=== PATIENT | male | born 1945 | race Caucasian/White ===

== ENCOUNTER 2016-09-30 10:54 | Emergency (ER) | payer MEDICARE, BC ==
[~2016-09-30] VITALS: Ht 165.1 cm; Wt 81.8 kg
[~2016-09-30 10:54] MED LIST: AMBIEN 5MG TABLE5 MG PO; AMLODIPINE BES2.5 MG PO; AMLODIPINE BESY10 MG PO; ASPIRIN 32325 MG/TAB PO; CIPRO 500MG TA500 MG PO; COLCRYS0.6 MG PO; CRESTOR 10MG10 MG PO; FLAGYL500 MG PO; FORTAMET1000 MG PO; GEMCOR600 MG PO; GLIPIZIDE10 MG PO; GLIPIZIDE5 MG PO; GLUCOPHAGE1000 MG PO; HCTZ 25MG TAB25 MG PO; HCTZ 25MG25 MG PO; INSULIN L (H100 U/ML IJ; KEPPRA 500MG500 MG PO; LISINOPRIL40 MG PO; LOPID 600M600 MG/TAB PO; LOPRESSOR 550 MG/TAB PO; LORTAB 5/500 501 TAB PO; METFORMIN1000 MG PO; METOCLOPRAMIDE10 MG PO; METOPROLOL50 MG PO; MOBIC15 MG PO; MULTI VITAMINS1 TAB PO; NEURONTIN600 MG/TAB PO; NORCO 325 MG-51 TAB PO; NORCO 325 MG-7.1 TAB PO; NOVOLOG MIX 70/33 ML SC; OMEGA-3 FISH1000 MG PO; PEPCID 20M20 MG/2 ML IV; PRAVASTATIN40 MG PO; PRILOSEC 20MG20 MG PO; PROAIR HFA0.09 MG/AC IH; REGLAN 10MG10 MG/TAB PO; THEO-24 30300 MG/CAP PO; THEO-DUR 300MG300 MG PO; THEOPHYLLINE S300 MG PO; TYLENOL 325MG325 MG PO; ULTRAM 50MG TAB50 MG PO; WELCHOL 625MG625 MG PO; ZESTRIL40 MG PO; ZOFRAN 4MG T4 MG/TAB PO
[2016-09-30 10:58] VITALS: TEMP 97.8
[2016-09-30 12:17] LABS: BASO % 0.6 % (0.0-2.0); EOS % 18.8 % (0-4.0); GRAN % 36.5 % (42.2-75.2); HEMATOCRIT 38.3 % (42.0-52.0); HEMOGLOBIN 12.9 g/dl (13.5-18.0); LYMPH # 1.9 (1.2-3.4); LYMPH % 34.5 % (20.0-51.0); MEAN CELL VOLUME 99 fl (80.0-100.0); MEAN CORPUSCULAR HEMOGLOBIN 33 pg (27.0-31.0); MEAN CORPUSCULAR HGB CONC 34 g/dl (33.0-37.0); MEAN PLATELET VOLUME 11.8 fl (7.4-10.4); MONO # 0.5 (0.1-0.6); PLATELET COUNT 197 K/mm3 (130-400); RED BLOOD COUNT 3.86 M/mm3 (4.20-5.60); REDCELL DISTRIBUTION WIDTH-CV 11.4 % (11.5-14.5); WHITE BLOOD COUNT 5.4 K/mm3 (4.8-10.8)
[2016-09-30 12:20] LABS: INR 1.1 (0.8-3.0); PROTHROMBIN TIME 12.1 SECONDS (9.7-12.8)
[2016-09-30 12:23] LABS: PARTIAL THROMBOPLASTIN TIME 35.3 SECONDS (26.0-37.0)
[2016-09-30 12:31] LABS: ADJUSTED CALCIUM 9.6 mg/dL (8.4-10.2); ALANINE AMINOTRANSFERASE 24 U/L (21-72); ALBUMIN 3.9 gm/dL (3.5-5.0); ALKALINE PHOSPHATASE 74 U/L (50-136); ANION GAP 13 mmol/L (7-16); BILIRUBIN,TOTAL 0.5 mg/dL (0.0-1.0); BLOOD UREA NITROGEN 18 mg/dL (9-20); CALCIUM 9.5 mg/dL (8.4-10.2); CARBON DIOXIDE 25 mmol/L (22-30); CHLORIDE 101 mmol/L (98-107); CREATININE, serum 0.71 mg/dL (0.66-1.25); GLUCOSE 138 mg/dL (74-106); POTASSIUM 4.1 mmol/L (3.4-5.0); SODIUM 139 mmol/L (137-145); TOTAL PROTEIN 6.5 gm/dL (6.4-8.2)
[2016-09-30 12:43] LABS: TROPONIN-I < 0.012 ng/mL (0.000-0.034)
[2016-09-30 13:19] VITALS: BP 138/80; PULSE 55
== END 2016-09-30 13:20 | disposition home or self-care (01) ==
LOC: COL.ER 10:54
PROVIDERS: Family Medicine
DX: R07.89 Other chest pain (principal); R07.81 Pleurodynia; I10 Essential (primary) hypertension; I25.10 Atherosclerotic heart disease of native coronary artery without angina pectoris

== ENCOUNTER 2017-09-24 06:37 | Day surgery (SDC) | payer MEDICARE, BC ==
[2017-09-24] VITALS (360 sets, daily range): BP systolic 117–175; BP diastolic 59–88; PULSE 48–62; TEMP 97.5–98.1; O2SAT 79–100
[~2017-09-24] VITALS: Ht 167.6 cm; Wt 84.5 kg
[2017-09-24 07:12] LABS: HEMATOCRIT 38.4 % (42.0-52.0); HEMOGLOBIN 13.1 g/dl (13.5-18.0); MEAN CELL VOLUME 98 fl (80.0-100.0); MEAN CORPUSCULAR HEMOGLOBIN 33 pg (27.0-31.0); MEAN CORPUSCULAR HGB CONC 34 g/dl (33.0-37.0); MEAN PLATELET VOLUME 11.3 fl (7.4-10.4); PLATELET COUNT 215 K/mm3 (130-400); RED BLOOD COUNT 3.94 M/mm3 (4.20-5.60); REDCELL DISTRIBUTION WIDTH-CV 11.5 % (11.5-14.5)
[2017-09-24 07:18] LABS: CALCIUM 8.9 mg/dL (8.4-10.2); CREATININE, serum 0.81 mg/dL (0.66-1.25); POTASSIUM 4.1 mmol/L (3.4-5.0)
[2017-09-24 07:24] LABS: INR 1.1 (0.8-3.0); PROTHROMBIN TIME 12.7 SECONDS (9.7-12.8)
[2017-09-24] MEDS ORDERED: NORVASC 10MG10 MG PO (07:41)
[2017-09-24] MEDS ORDERED: EPA FISH OIL1 SGL PO (07:45)
[2017-09-24] MEDS ORDERED: LOPID 600M600 MG/TAB PO (07:48)
[2017-09-24] MEDS ORDERED: NOVOLOG FLEX100 U/ML SQ (07:51)
[2017-09-24] MEDS ORDERED: KEPPRA750 MG PO (07:52)
[2017-09-24] MEDS ORDERED: TOPROL XL200 MG PO (07:53)
[2017-09-24] MEDS ORDERED: MULTI VITAMINS1 TAB PO (07:56)
[2017-09-24] MEDS ORDERED: PRILOSEC 20MG20 MG PO (21:00)
[2017-09-25] VITALS (333 sets, daily range): BP systolic 131–164; BP diastolic 75–83; PULSE 52–62; TEMP 97.5–98.3; O2SAT 86–100
[2017-09-25 05:42] LABS: BASO % 0.2 % (0.0-2.0); EOS # 0.8 (0.0-0.7); GRAN # 6.4 (1.4-6.5); HEMATOCRIT 37.2 % (42.0-52.0); HEMOGLOBIN 12.7 g/dl (13.5-18.0); LYMPH # 1.5 (1.2-3.4); LYMPH % 15.6 % (20.0-51.0); MEAN CELL VOLUME 96 fl (80.0-100.0); MEAN CORPUSCULAR HEMOGLOBIN 33 pg (27.0-31.0); MEAN CORPUSCULAR HGB CONC 34 g/dl (33.0-37.0); MEAN PLATELET VOLUME 11.3 fl (7.4-10.4); MONO # 0.8 (0.1-0.6); MONO % 8.7 % (1.7-9.3); PLATELET COUNT 213 K/mm3 (130-400); RED BLOOD COUNT 3.88 M/mm3 (4.20-5.60); REDCELL DISTRIBUTION WIDTH-CV 11.7 % (11.5-14.5)
[2017-09-25 05:52] LABS: CALCIUM 8.8 mg/dL (8.4-10.2); CREATININE, serum 0.75 mg/dL (0.66-1.25); POTASSIUM 3.7 mmol/L (3.4-5.0)
[2017-09-25] MEDS ORDERED: BRILINTA90 MG PO (10:36)
[2017-09-25] MEDS ORDERED: ASPIRIN E.C. 8181 MG PO (10:37)
== END 2017-09-25 11:00 | disposition home or self-care (01) ==
LOC: COL.CAR 06:37 → ICU 15:31 → COL.CAR 09-25 11:00
PROVIDERS: Internal Medicine Cardiovascular Disease; Internal Medicine Interventional Cardiology
DX: I25.110 Atherosclerotic heart disease of native coronary artery with unstable angina pectoris (principal); I10 Essential (primary) hypertension; E11.40 Type 2 diabetes mellitus with diabetic neuropathy, unspecified; Z79.4 Long term (current) use of insulin; J44.9 Chronic obstructive pulmonary disease, unspecified; M10.9 Gout, unspecified; E78.5 Hyperlipidemia, unspecified; G40.909 Epilepsy, unspecified, not intractable, without status epilepticus; G47.30 Sleep apnea, unspecified; I71.9 Aortic aneurysm of unspecified site, without rupture; M54.9 Dorsalgia, unspecified; Z85.828 Personal history of other malignant neoplasm of skin; Z88.1 Allergy status to other antibiotic agents; Z88.8 Allergy status to other drugs, medicaments and biological substances; Z79.82 Long term (current) use of aspirin; Z87.891 Personal history of nicotine dependence
CPT/HCPCS: OP; G0378; J0583; J1644; J1815; J2250; J2405; J3010; Q9967

== ENCOUNTER → 2018-03-24 | Outpatient (CLI) | payer MEDICARE, BC ==
[~2018-03-24] MED LIST changes: +ASPIRIN E.C. 8181 MG PO; +BRILINTA90 MG PO; +EPA FISH OIL1 SGL PO; +KEPPRA750 MG PO; +NORVASC 10MG10 MG PO; +NOVOLOG FLEX100 U/ML SQ; +TOPROL XL200 MG PO
== END ==
LOC: COL.RAD 08:24
DX: I71.2 Thoracic aortic aneurysm, without rupture (principal); R91.1 Solitary pulmonary nodule
CPT/HCPCS: Q9967

== ENCOUNTER → 2019-03-19 | Outpatient (CLI) | payer MEDICARE, BC | LOC: COL.RAD 12:27 | DX: I77.810 Thoracic aortic ectasia (principal); M47.814 Spondylosis without myelopathy or radiculopathy, thoracic region; J98.59 Other diseases of mediastinum, not elsewhere classified | CPT/HCPCS: Q9967 ==

== ENCOUNTER 2019-07-20 12:17 | Emergency (ER) | payer MEDICARE, BC ==
[~2019-07-20] VITALS: Ht 167.6 cm; Wt 81.8 kg
[2019-07-20 12:19] VITALS: TEMP 97.5
[2019-07-20 12:42] LABS: HEMATOCRIT 38.6 % (42.0-52.0); HEMOGLOBIN 12.6 g/dl (13.5-18.0); MEAN CELL VOLUME 102 fl (80.0-100.0); MEAN CORPUSCULAR HEMOGLOBIN 33 pg (27.0-31.0); MEAN CORPUSCULAR HGB CONC 33 g/dl (33.0-37.0); MEAN PLATELET VOLUME 11.4 fl (7.4-10.4); PLATELET COUNT 236 K/mm3 (130-400); REDCELL DISTRIBUTION WIDTH-CV 12.1 % (11.5-14.5)
[2019-07-20 12:52] LABS: ALANINE AMINOTRANSFERASE 21 U/L (21-72); ALBUMIN 4.4 gm/dL (3.5-5.0); ALKALINE PHOSPHATASE 70 U/L (50-136); ANION GAP 11 mmol/L (7-16); AST,SGOT 37 U/L (15-37); BILIRUBIN,TOTAL 0.4 mg/dL (0.0-1.0); BLOOD UREA NITROGEN 22 mg/dL (9-20); CALCIUM 9.7 mg/dL (8.4-10.2); CARBON DIOXIDE 24 mmol/L (22-30); CHLORIDE 103 mmol/L (98-107); CREATININE, serum 0.92 (0.66-1.25); GLUCOSE 146 mg/dL (74-106); POTASSIUM 5.1 mmol/L (3.4-5.0); SODIUM 138 mmol/L (137-145); TOTAL PROTEIN 7.2 gm/dL (6.4-8.2)
[2019-07-20 13:02] LABS: BAND 1 % (0-10); EOSINOPHIL 19 % (0-4); LYMPHOCYTE 38 % (20.0-51.0); MYELOCYTE 1 % (0-0); NEUTROPHILS 32 % (42.0-75.2)
[2019-07-20 13:04] LABS: PLATELET ESTIMATE NORMAL (NORMAL)
[2019-07-20 13:06] LABS: TROPONIN-I < 0.012 ng/mL (0.000-0.035)
[2019-07-20 14:43] LABS: COLLECTION METHOD CLEAN CATCH
[2019-07-20 14:48] LABS: PH 7 (5-8); SQUAMOUS EPITHELIAL None Seen /hpf; URINE APPEARANCE Clear; URINE BACTERIA None Seen /hpf; URINE BILIRUBIN Negative (NEGATIVE); URINE BLOOD Negative (NEGATIVE); URINE COLOR Yellow; URINE GLUCOSE Negative (NEGATIVE); URINE KETONE Negative (NEGATIVE); URINE LEUKOCYTE ESTERASE Negative (NEGATIVE); URINE NITRATE Negative (NEGATIVE); URINE PROTEIN(semi-quant) Negative (NEGATIVE); URINE RBC None Seen /hpf; URINE UROBILINOGEN Negative (NEGATIVE)
[2019-07-20 17:36] VITALS: BP 131/70; PULSE 63
== END 2019-07-20 17:36 | disposition home or self-care (01) ==
LOC: COL.ER 12:17
PROVIDERS: Emergency Medicine
DX: R55 Syncope and collapse (principal); I25.10 Atherosclerotic heart disease of native coronary artery without angina pectoris; I10 Essential (primary) hypertension; E11.9 Type 2 diabetes mellitus without complications; G40.909 Epilepsy, unspecified, not intractable, without status epilepticus; J44.9 Chronic obstructive pulmonary disease, unspecified; Z95.5 Presence of coronary angioplasty implant and graft
CPT/HCPCS: J7030

== ENCOUNTER 2021-05-17 16:24 | Emergency (ER) | payer MEDICARE, BC ==
[~2021-05-17] VITALS: Ht 165.1 cm; Wt 79.5 kg
[2021-05-17 16:35] VITALS: TEMP 98.1
[2021-05-17 17:49] LABS: BASO % 0.5 % (0.0-2.0); EOS # 1.3 K/mm3 (0.0-0.7); EOS % 16.2 % (0-4.0); GRAN # 4.2 K/mm3 (1.4-6.5); GRAN % 54.4 % (42.2-75.2); HEMATOCRIT 38.4 % (42.0-52.0); HEMOGLOBIN 12.2 g/dl (13.5-18.0); LYMPH # 1.4 K/mm3 (1.2-3.4); LYMPH % 17.9 % (20.0-51.0); MEAN CELL VOLUME 101 fl (80.0-100.0); MEAN CORPUSCULAR HEMOGLOBIN 32 pg (27.0-31.0); MEAN CORPUSCULAR HGB CONC 32 g/dl (33.0-37.0); MEAN PLATELET VOLUME 10.9 fl (7.4-10.4); MONO # 0.8 K/mm3 (0.1-0.6); MONO % 10.6 % (1.7-9.3); PLATELET COUNT 254 K/mm3 (130-400); RED BLOOD COUNT 3.79 M/mm3 (4.20-5.60); REDCELL DISTRIBUTION WIDTH-CV 12.4 % (11.5-14.5)
[2021-05-17 17:53] LABS: PROTHROMBIN TIME 10.9 SECONDS (9.7-12.8)
[2021-05-17 17:56] LABS: PARTIAL THROMBOPLASTIN TIME 34.5 SECONDS (26.0-37.0)
[2021-05-17 18:06] LABS: BILIRUBIN,TOTAL 0.3 mg/dL (0.2-1.2); CALCIUM 9.4 mg/dL (8.4-10.2)
[2021-05-17 18:27] LABS: HIV 1/2 Antibodies Non-Reactive; HIV-1p24 Antigen Non-Reactive
[2021-05-17 18:36] LABS: ALBUMIN 3.9 gm/dL (3.4-4.8); CREATININE, serum 0.8 mg/dL (0.72-1.25)
[2021-05-17] MEDS ORDERED: DIFLUCAN150 MG PO (18:45)
[2021-05-17 18:49] VITALS: BP 147/87; PULSE 68
== END 2021-05-17 18:49 | disposition home or self-care (01) ==
LOC: COL.ER 16:24
PROVIDERS: Emergency Medicine
DX: B37.9 Candidiasis, unspecified (principal); R21 Rash and other nonspecific skin eruption; I25.10 Atherosclerotic heart disease of native coronary artery without angina pectoris; I10 Essential (primary) hypertension; E11.9 Type 2 diabetes mellitus without complications; J45.909 Unspecified asthma, uncomplicated; E78.5 Hyperlipidemia, unspecified; Z87.891 Personal history of nicotine dependence; Z79.82 Long term (current) use of aspirin; Z79.4 Long term (current) use of insulin; Z79.84 Long term (current) use of oral hypoglycemic drugs; Z79.899 Other long term (current) drug therapy

== ENCOUNTER 2023-03-19 11:08 | Day surgery (SDC) | payer MEDICARE, BC ==
[~2023-03-19] VITALS: Ht 167.6 cm; Wt 80.0 kg
[2023-03-19] VITALS (11 sets, daily range): BP systolic 119–194; BP diastolic 60–74; PULSE 57–67; TEMP 97.5
[~2023-03-19 11:08] MED LIST changes: +DIFLUCAN150 MG PO; +REMERON 15M15 MG/TA1 PO
[2023-03-19 12:13] LABS: INR 1.1 (0.8-3.0); PROTHROMBIN TIME 11.7 SECONDS (9.7-12.8)
[2023-03-19 12:15] LABS: HEMOGLOBIN 10.2 g/dl (13.5-18.0); MEAN CELL VOLUME 93 fl (80.0-100.0); MEAN CORPUSCULAR HEMOGLOBIN 29 pg (27-31); MEAN CORPUSCULAR HGB CONC 31 g/dl (33.0-37.0); MEAN PLATELET VOLUME 10.5 fl (7.4-10.4); PLATELET COUNT 232 K/mm3 (130-400); RED BLOOD COUNT 3.58 M/mm3 (4.20-5.60); REDCELL DISTRIBUTION WIDTH-CV 15.2 % (11.5-14.5)
[2023-03-19 12:16] LABS: PARTIAL THROMBOPLASTIN TIME 32.5 SECONDS (26.0-37.0)
[2023-03-19 12:19] LABS: CALCIUM 9.3 mg/dL (8.4-10.2); CREATININE, serum 0.82 mg/dL (0.72-1.25); POTASSIUM 4.4 mmol/L (3.5-4.5)
[2023-03-19 12:28] LABS: HEMATOCRIT 33.4 % (42.0-52.0)
[2023-03-19] MEDS ORDERED: NOVOLIN 70/30 710 ML SQ (12:46)
[2023-03-19] MEDS ORDERED: MOBIC15 MG PO (12:48)
[2023-03-19] MEDS ORDERED: PATADAY 2.5 ML2.5 ML OU (12:49)
[2023-03-19] MEDS ORDERED: LOPRESSOR100 MG PO (12:49)
[2023-03-19] MEDS ORDERED: TYLENOL 325MG325 MG PO (12:50)
[2023-03-19] MEDS ORDERED: COLCRYS0.6 MG PO (12:50)
[2023-03-19] MEDS ORDERED: COLESTID 1GM1 G PO (12:51)
--- NOTE | 2023-03-19 15:09 | NUR ---
See merge for all medication, assessment, intervention, and vital sign times.
--- NOTE | 2023-03-19 15:45 | NUR ---
pt to eu 15 via bed from [employer] lab[employer], pt is awake and alert, in room. radial site with no signs of bleeding or swelling, call light in reach. supper ordered, pt takes sprite, used urinal in bed 300cc yellow urine, report to Louisa MATTHEWS to take over care at 1600
[2023-03-19] MEDS ORDERED: PLAVIX 75MG TAB75 MG PO (17:13)
[2023-03-19] MEDS ORDERED: PROTONIX20 MG PO (17:13)
[2023-03-19] MEDS ORDERED: BIDIL 37.5 MG-21 TAB PO (17:14)
--- NOTE | 2023-03-19 17:16 | NUR ---
10 MG IV Hydralazine administered to pt at [address] Landry orders to help treat post-op hypertension. 5 MG PO Norvasc to follow 30 minutes later.
--- NOTE | 2023-03-19 18:49 | NUR ---
pt discharged at approx 1830. pt was assisted to ER exit via wheelchair where ride was waiting. 2 ml of air was released from TR band incrementally until band was completely deflated. pt remained free from signs of bleeding and hematoma during recovery. pt was hypertensive post-operatively, Dr Landry ordered this to be treated with 10 MG IV hydralazine and 5 MG PO Norvasc 30 minutes apart. pt verbalized understanding of discharge orders and iv was discontinued upon discharge. pt remained free from acute concerns and complaints.
== END 2023-03-19 18:40 | disposition home or self-care (01) ==
LOC: COL.CAR 11:08
PROVIDERS: Internal Medicine Cardiovascular Disease
DX: I25.10 Atherosclerotic heart disease of native coronary artery without angina pectoris (principal); I25.84 Coronary atherosclerosis due to calcified coronary lesion; Z95.5 Presence of coronary angioplasty implant and graft
CPT/HCPCS: J0360; J1644; J2250; J3010; Q9967

== ENCOUNTER 2024-04-01 10:11 | Emergency (ER) | payer MEDICARE, BC ==
[~2024-04-01] VITALS: Ht 167.6 cm; Wt 81.4 kg
[~2024-04-01 10:11] MED LIST changes: +BIDIL 37.5 MG-21 TAB PO; +COLESTID 1GM1 G PO; +LOPRESSOR100 MG PO; +NOVOLIN 70/30 710 ML SQ; +PATADAY 2.5 ML2.5 ML OU; +PLAVIX 75MG TAB75 MG PO; +PROTONIX20 MG PO
[2024-04-01 10:18] VITALS: TEMP 98.2
[2024-04-01 10:57] LABS: HEMATOCRIT 38.2 % (42.0-52.0); HEMOGLOBIN 12.5 g/dl (13.5-18.0); MEAN CELL VOLUME 104 fl (80.0-100.0); MEAN CORPUSCULAR HEMOGLOBIN 34 pg (27-31); MEAN CORPUSCULAR HGB CONC 33 g/dl (33.0-37.0); MEAN PLATELET VOLUME 10.9 fl (7.4-10.4); PLATELET COUNT 191 K/mm3 (130-400); RED BLOOD COUNT 3.67 M/mm3 (4.20-5.60)
[2024-04-01 11:20] LABS: ALBUMIN 3.3 g/dL (3.4-4.8); BILIRUBIN,TOTAL 0.2 mg/dL (0.2-1.2); CALCIUM 9.3 mg/dL (8.4-10.2); CREATININE, serum 0.87 mg/dL (0.72-1.25); POTASSIUM 4.2 mEq/L (3.5-4.5); TOTAL PROTEIN 6.2 g/dl (6.2-8.1)
[2024-04-01 11:26] LABS: TROPONIN-I 0.01 ng/mL (0.00-0.033)
[2024-04-01 11:38] LABS: BAND 1 % (0-10); EOSINOPHIL 26 % (0-4); HYPOCHROMIA 1+; LYMPHOCYTE 25 % (20.0-51.0); NEUTROPHILS 39 % (42.0-75.2); PLATELET ESTIMATE NORMAL (NORMAL)
[2024-04-01] MEDS ORDERED: hydrALAZINE 20 MG/ML 1 ML VIAL IV ONE ×2 (12:00→12:45)
[2024-04-01 14:20] VITALS: BP 143/67; PULSE 64
== END 2024-04-01 14:26 | disposition home or self-care (01) ==
LOC: COL.ER 10:11
PROVIDERS: Physician Assistant
DX: I16.0 Hypertensive urgency (principal); Z87.891 Personal history of nicotine dependence
CPT/HCPCS: J0360